=== PATIENT | female | born 1970 | race Caucasian/White ===

== ENCOUNTER 2025-09-02 14:24 | Outpatient (AMB) | payer OTHER, SELFPAY ==
[2025-09-02 14:31] VITALS: BMI 29.2
--- NOTE | 2025-09-02 14:31 | A.PHYSOV_ITS ---
Vital Signs 09/02/25 14:31 Height 5 ft 3 in Weight 165 lb BMI 29.2 Intake Visit Reasons: left hip & right shoulder injections Intake Note: Patient is a 55 year old female here for left hip and right shoulder injection. Aircraft Navigator Required: No Allergies cefaclor (From Ceclor) Allergy (Unknown, Verified 09/02/25 14:32) Unknown [facility] Surgical History Hx of tonsillectomy H/O hernia repair H/O gastric bypass History of cholecystectomy Social History Alcohol intake: current Alcohol intake frequency: does not drink Patient Tobacco Use Status: Current everyday Tobacco user Physical Exam Vital Signs: BMI result Body Mass Index 29.2 Office Procedures AMB Hip Injection AMB Hip Injection Procedure Details: Left Greater trochanteric bursal injection: The risks, benefits and complications of the [ ] greater trochanteric bursitis/gluteal tendinopathy were discussed with the patient, including but not limited to infection, increased serum glucose, nerve damage, bleeding and pain. All questions were answered to the patient's satisfaction. Verbal consent was obtained. The patient was eager to proceed. Patient was cleansed with Betadine, ethyl chloride was then used to desensitize the skin. Using an a 25-gauge needle 40 mg of Kenalog and 3 mL 2% lidocaine were injected over the greater trochanter of maximal tenderness. The patient tolerated the procedure well without immediate complication. Postinjection instructions were given. Hip (Bursa) Injection - 97506: Left All charges added?: Procedure code (CPT) selection complete AMB Shoulder Injection AMB Shoulder Injection Procedure Details: Right Subacromial injection Procedure: The patient was educated about risks, complications and benefits including but not limited to increased serum glucose, infection, nerve damage, bleeding, tendon/ligament damage and pain. We agree with a subacromial injection is the next best step in the treatment plan. Verbal consent was obtained. Using aseptic technique, the skin was cleansed with Betadine. Ethyl chloride was used to desensitize the skin. Using a posterior approach, 40 mg of Kenalog and 3 mL 2% lidocaine were injected using a 25-gauge inch and a half needle into the subacromial space. The patient tolerated the procedure well without immediate complication. Postinjection instructions were given. Shoulder Injection - : Right All charges added?: Procedure code (CPT) selection complete Office Meds Kenalog 40 mg/mL suspension for injection Performing Provider: ELI De León [facility] Administered by: ELI De León on 09/03/25 12:22 Dose Route Admin Location Dispensed Lot Number Expiration Date [facility] Transverse Abdominal Muscle Nurse 40 mg intrabursal 1 mL [address]-5 [employer] Total Dispensed Waste 1 mL 0 % lidocaine (PF) 20 mg/mL (2 %) injection solution Performing Provider: ELI De León Performing Location: [facility] Administered by: ELI De León on 09/03/25 12:22 Dose Route Admin Location Dispensed Lot Number Expiration Date [facility] Transverse Abdominal Muscle Nurse 60 mg intrabursal 5 mL [id number] [employer] Total Dispensed Waste 5 mL 40 % Kenalog 40 mg/mL suspension for injection Performing Provider: ELI De León Performing Location: [facility] Administered by: ELI De León on 09/03/25 12:22 Dose Route Admin Location Dispensed Lot Number Expiration Date [facility] Transverse Abdominal Muscle Nurse 40 mg intrabursal 1 mL [address]-9 [employer] Total Dispensed Waste 1 mL 0 % lidocaine (PF) 20 mg/mL (2 %) injection solution Performing Provider: ELI De León Performing Location: [facility] Administered by: ELI De León on 09/03/25 12:22 Dose Route Admin Location Dispensed Lot Number Expiration Date [facility] Transverse Abdominal Muscle Nurse 60 mg intrabursal 5 mL [id number] [employer] Total Dispensed Waste 5 mL 40 % Assessment & Plan Assessment & Plan (1) Impingement of right shoulder: Code(s): M25.811 - Other specified joint disorders, right shoulder Category: Medical (2) Hip bursitis, left: Code(s): M70.72 - Other bursitis of hip, left hip Category: Medical Qualifiers: Hip bursitis location: trochanteric bursitis Qualified Code(s): M70.62 - Trochanteric bursitis, left hip Plan Ms. Bell is a 55-year-old female seen in evaluation today for right shoulder bursitis as well as left greater trochanteric bursitis. Today she consented to subacromial and hip bursal injection. She was given post-injection instructions, recommend cold or moist heat compresses for 15 minutes 5 times daily. Continue her home exercise plan and medications as prescribed. Follow- up with our office as needed. Thank you for allowing me to participate in the care of your patient. Orders: Orders AMB Hip/Bursa Injection 09/02/25 M70.72 - Other bursitis of hip, left hip AMB Shoulder Injection 09/02/25 M25.811 - Other specified joint disorders, right shoulder Coding Level of Care Code Procedure Only Diagnoses Impingement of right shoulder M25.811 Trochanteric bursitis of left hip M70.62 Hip bursitis location: trochanteric bursitis CPT Codes AMB Hip Injection - Hip/Bursa Injection - 35969: Left ([id number]) AMB Shoulder Injection - Hip/Bursa Injection - 09578: Right ([id number])
--- OUTSIDE RECORDS SUMMARY | 2025-09-02 17:51 | XMS_ITS | Data Portability ---
Author Organization [facility], [facility] Address [address] [place] [address] Care Team Providers Care Community Service Officer Name Role Phone GA ALBERTO Primary Care Provider [phone] Assessment Encounter Date Assessment Date Assessment LastModified by Organization Details LastModified Time 06/06/2024 06/06/2024 ICD-10: Left lateral ankle sprain involving ATFL, distal fibular and talar avulsion fractures CHIEF COMPLAINT: Left lateral ankle pain HISTORY OF PRESENT ILLNESS: Latrice is a very pleasant 54-year-old woman seen today as a new patient who sustained a left ankle inversion sprain on 06/02/2024. She reports that her left lower extremity fell asleep and when she went to stand up, her left ankle gave way beneath her. She denies any previous ankle injuries or problems. The patient localizes pain to the lateral aspect of the ankle. She also describes swelling and ecchymosis. She was seen in the ER where x-rays were obtained. She has been wearing a CAM boot. Past family, medical, social history and review of systems has been reviewed, updated and is located in the patient s chart. She works in admin job. A one pack per day smoker. PHYSICAL EXAM: General: healthy appearing, in no acute distress Psych: alert and oriented x3, normal mood Skin: intact without ulceration or lesion, normal turgor Lungs: respirations unlabored Cardiac: heart rate regular, normal peripheral pulses Musculoskeletal: Gait is antalgic on the affected side. The patient has normal and symmetric foot and ankle alignment. On seated exam, there is swelling and ecchymosis about the lateral aspect of the ankle. There is also some dependent ecchymosis over the lateral hindfoot and posterior ankle. The patient is tender over the anterolateral ankle and ATFL. The patient has mild tenderness over the peroneal tendons. There is no peroneal subluxation. There is no gross ankle instability but stability examination is limited secondary to pain, guarding and swelling. There is no deltoid or syndesmotic tenderness. The patient is nontender about the calcaneal anterior process and fifth metatarsal base. There is no first, second and third TMT instability or tenderness. She is distally neurovascularly intact. X-RAYS: Recent x-ray images through [facility] were independently reviewed, demonstrating multiple small avulsion fractures arising from the distal fibula and lateral talus with congruent ankle mortise. IMPRESSION: Left ankle sprain involving ATFL, distal fibular and talar avulsion fractures PLAN: I explained that her avulsion fractures represent a lateral ankle sprain equivalent. I have explained to the patient the importance of appropriate rehabilitation following an ankle sprain to minimize the chance of reinjury. I have recommended 2 weeks of immobilization in a tall CAM boot followed by 2 weeks in an ASO ankle brace, which was provided today. She may work on ankle range of motion exercises, which were demonstrated today. She declines formal physical therapy. The patient will follow up in 4-6 weeks for reevaluation. If she fails to improve, an MRI of the left ankle may be indicated for further evaluation. I explained that surgery is only indicated for this injury if she develops chronic lateral ankle instability refractory to conservative treatment. The patient understands and agrees with this plan. All of the patient's questions were answered. The patient is ambulatory, but has weakness and/or instability of their extremity which requires stabilization from this semi-rigid/rigid orthosis to improve their function. Verbal and written instructions for the use and application of this item were given. Patient was instructed that should the brace result in increased pain, decreased sensation, increased swelling or an overall worsening of their medical condition, to please contact our office immediately. [email or web address] Not available 06/06/2024 13:29:29 Plan of Treatment Reminders Order Date Submit Date Provider Last Modified By Organization Details Last Modified Time Details Appointments None record ed. Lab None record ed. Referral None record ed. Procedures None record ed. Surgeries None record ed. Imaging None record ed. Medication Orders None record ed. Patient TargetsNo targets recorded. Patient InstructionsNo instructions recorded. Reason for Referral None Reported. Procedures Surgical History Date Name Laterality Status Provider Name and Address Organization Details Recorded Time Bariatric Surgery completed TASH JOINER [facility] 06/06/2024 13:17:00 Other completed TASH HUMELIBIA [facility] 06/06/2024 13:17:00 Imaging Results None recorded. Procedure Notes None recorded. Medical Equipment None Reported. Allergies Allergen ID Allergen Name Allergen Category Reaction Reaction Severity Criticality Documentation Date Start Date Code Code System Note Provider Name and Address Organization Details Recorded Time [id number] [facility] pal[facility] moderate Not available 06/06/2024199663 5 RxNorm [facility] DELMY granados [facility] 13:16:54 Medications Name Sig Start Date Stop Date Status Note LastModified by Organization Details LastModified Time sucralfate 1 gram tablet TAKE 1 TABLET BY MOUTH THREE TIMES DAILY BEFORE MEALS AND AT BEDTIME active Not Available Not Available No t Available acetaminophen 300 mg-codeine 15 mg tablet TAKE 1 TABLET BY MOUTH DAILY NEEDED FOR PAIN active Not Available Not Available No t Available esomeprazole magnesium 40 mg capsule,delayed release TAKE 1 CAPSULE BY MOUTH TWICE DAILY active Not Available Not Available No t Available codeine 10 mg-guaifenesin 100 mg/5 mL oral liquid TAKE 10 ML BY MOUTH EVERY 4 TO 6 HOURS NEEDED FOR COUGH active Not Available Not Available No t Available amoxicillin 875 mg-potassium clavulanate 125 mg tablet TAKE 1 TABLET BY MOUTH EVERY 12 HOURS FOR 7 DAYS active Not Available Not Available No t Available Sodium Fluoride 5000 Plus 1.1 % dental cream BRUSH AND SPIT EVERY NIGHT AT BEDTIME DAILY WITHOUT RINSING. active Not Available Not Available No t Available Vitals Date Recorded Body height Body mass index (BMI) Body weight Provider Name and Address Organization Details Last Updated DateTime 06/06/2024 160.02 cm 30.1 kg/m2 18628.7 g TASH Concepcion [facility] 06/06/2024 13:56:07 Date Recorded Body height Body mass index (BMI) Body weight Provider Name and Address Organization Details Last Updated DateTime 07/06/2024 160.02 cm 30.1 kg/m2 92084.7 g alberto morin [facility] 07/06/2024 16:20:31 Social History Question Answer Notes LastModified by Organizat ion Details LastModified Time Tobacco Smoking Status Current Every Day Smoker TASH granados [facility] 06/06/2024 13:16:58 What Is Your Relationship Status? Information not available 06/06/2024 How Many Years Have You Smoked Tobacco? 40 Information not available 06/06/2024 Sex: Unknown Functional Status Question Answer Note LastModified by Organizat ion Details LastModified Time How many times per week do you consume alcohol? Less than 1 time per week Information not available 06/06/2024 Do you use any illicit or recreational drugs? No Information not available 06/06/2024 Do you or have you ever used any other forms of tobacco or nicotine? No Information not available 06/06/2024 Do you or have you ever used e-cigarettes or vape? Current user of electronic cigarettes Information not available 06/06/2024 Mental Status None recorded. Family History Nothing Reported. Medical History Condition Response Allergies/Hayfever Y Acid Reflux (GERD) Y Arthritis Y Gynecological HistoryNo gynecological history recorded. Obstetrics History GPAL:G 0 P 0 0 0 0 Past Encounters Encounter ID Performer Location Encounter Start Date Encounter Closed Date Diagnosis/Indication Diagnosis SNOMED-CT Code Diagnosis ICD10 Code Diagnosis IMO Codes Diagnosis Note [id number] MD Teresa Posadas [address] [place] [address] 06/06/2024 12:59:34 06/28/2024 08:10:53 Sprain of left ankle 3939730824 5594425 S93.402A Closed fra cture of talus 30535764 S92.152A [id number] [place] [address] [place] [address] 07/06/2024 15:51:50 08/01/2024 11:38:24 Acute ankle pain 8147840745 9105 M25.572 [id number] Health Concerns Section Related Observation LastModified by Organization Detai ls LastModified Time None Recorded Concern Status LastModified by Organization Details LastModified Time None Recorded Advance Directives Directive None Recorded Payers Insurance Date Sequence Insurance Name Policy Number Policy Mckinney Covered Member ID Mckinney Member ID Guarantor Name 08/01/[address] [place] [address] ([facility] [id number] Diana Bell [id number] Diana Bell Notes Date Note Type Note Provider Name and Address Organization Details Recorded Time 06/06/2024 text/html ROS as noted in the HPI Karl Katz MD [address] [place] [address] [address], [place], [address], [facility] 06/06/2024 14:09:59 07/06/2024 text/html I am seeing this patient under the supervision of Dr. Silva who was available but who did not see the patient. ICD-10: Left lateral ankle sprain involving ATFL, distal fibular and talar avulsion fracturesCHIEF COMPLAINT: Left lateral ankle pain Medical update: Patient is here today for recheck. Reports she has transitioned to the brace for the past 2 weeks. Reports she is doing well. Reports her pain and swelling and bruising have substantially improved. She has very pleased with her progress at this time. Does not feel that she needs physical therapy. Physical exam, imaging review, impression, and plan for today's visit updated below.HISTORY OF PRESENT ILLNESS: Latrice is a very pleasant 54-year-old woman seen today as a new patient who sustained a left ankle inversion sprain on 06/02/2024. She reports that her left lower extremity fell asleep and when she went to stand up, her left ankle gave way beneath her. She denies any previous ankle injuries or problems. The patient localizes pain to the lateral aspect of the ankle. She also describes swelling and ecchymosis. She was seen in the ER where x-rays were obtained. She has been wearing a CAM boot.Past family, medical, social history and review of systems has been reviewed, updated and is located in the patient s chart. 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 The patient has normal and symmetric foot and ankle alignment. On seated exam, there is only minimal swelling about the lateral aspect of the ankle. The patient is mildly tender over the anterolateral ankle and ATFL. The patient has mild tenderness over the peroneal tendons. There is no peroneal subluxation. There is no gross ankle instability. There is no deltoid or syndesmotic tenderness. The patient is nontender about the calcaneal anterior process and fifth metatarsal base. There is no first, second and third TMT instability or tenderness. She is distally neurovascularly intact.Previous films: Recent x-ray images through [facility] were independently reviewed, demonstrating multiple small avulsion fractures arising from the distal fibula and lateral talus with congruent ankle mortise.IMPRESSION: Left ankle sprain involving ATFL, distal fibular and talar avulsion fracturesPLAN I discussed my findings and the situation with the patient. We discussed potential treatment options at this time. I recommended she continue with the brace for another 1 to 2 weeks and wean from the as tolerated and as she makes progress with ankle strengthening. I offered physical therapy and we discussed the importance of appropriate rehabilitation following an ankle sprain to minimize the chance of reinjury. Nonetheless patient would like to continue with ankle exercises at home for now. She will follow-up on an as-needed basis. If symptoms persist or things worsen or change or she would like to try physical therapy she will call the office. The patient understands and agrees with this plan. All of the patient's questions were answered. Speech recognition ladle repairer software was used to create portions of this document. An attempt at proofreading has been made to minimize errors. Please call for corrections. Stephanie Perez PA-C [address] [facility] [address], [place], [address], [facility] 07/06/2024 16:56:20 OBGyn Episode No OBEpisode recorded.
== END 2025-09-02 15:48 | disposition home or self-care (01) ==
LOC: HO.HPHYS 14:24
PROVIDERS: PCP Internal Medicine; Visit Provider Physician Assistant
DX: M25.811 Other specified joint disorders, right shoulder (principal); M70.62 Trochanteric bursitis, left hip; M70.72 Other bursitis of hip, left hip
CPT/HCPCS: 20610

== ENCOUNTER → 2025-09-02 14:24 | Outpatient (BNVA) | payer OTHER, SELFPAY | PROVIDERS: PCP Internal Medicine; Visit Provider Physician Assistant | DX: M25.811 Other specified joint disorders, right shoulder (principal); M70.72 Other bursitis of hip, left hip | CPT/HCPCS: 20610; J2003; J3301 ==